=== PATIENT | female | born 1965 | race Caucasian/White ===

== ENCOUNTER 2017-09-19 10:41 | Emergency (ER) | payer MEDICARE, OTHER ==
[~2017-09-19] VITALS: Ht 142.2 cm; Wt 68.2 kg
[~2017-09-19 10:41] MED LIST: AMLO2.5T2 PO; CARV25TA2 PO; CLON1PAT15 TD; FENT1PAT7 TP; HYDR-4069 PO; HYDR-565 PO; NIT10P TD; VALS1TAB81 PO
[2017-09-19 10:45] VITALS: BP 157/74
[2017-09-19] MEDS ORDERED: dexamethasone sod phosphate 10mg/ml inj IM STA (11:10)
[2017-09-19] MEDS ORDERED: cyclobenzaprine 10mg tablet PO ONE (11:10)
[2017-09-19] MEDS ORDERED: METH4TAB81 PO (12:15)
[2017-09-19] MEDS ORDERED: CYCL5TAB PO (12:15)
== END 2017-09-19 12:32 | disposition home or self-care (01) ==
LOC: ER 10:41
DX: M54.5 Low back pain (principal); I10 Essential (primary) hypertension; G43.909 Migraine, unspecified, not intractable, without status migrainosus; Z98.890 Other specified postprocedural states; Z88.5 Allergy status to narcotic agent; Z88.8 Allergy status to other drugs, medicaments and biological substances; Z79.899 Other long term (current) drug therapy
CPT/HCPCS: 99284; J1100

== ENCOUNTER 2018-01-11 06:21 | Day surgery (SDC) | payer MEDICARE, OTHER ==
[2018-01-09 16:41] LABS: BASOPHILS # (AUTO) 0.1 X10'3 (0-0.2); BASOPHILS % (AUTO) 0.8 % (0-1); EOSINOPHILS # (AUTO) 0.3 X10'3 (0-0.9); EOSINOPHILS % (AUTO) 3.5 % (0-6); LYMPHOCYTES # (AUTO) 2.3 X10'3 (1.1-4.8); LYMPHOCYTES % (AUTO) 27.3 % (21-51); MEAN CORPUSCULAR HEMOGLOBIN 30.9 PG (27.0-31.0); MEAN CORPUSCULAR HGB CONC 33.5 % (33.0-36.5); MEAN CORPUSCULAR VOLUME 92.3 FL (78-98); MEAN PLATELET VOLUME 7.9 FL (7.4-10.4); MONOCYTES # (AUTO) 0.6 X10'3 (0-0.9); MONOCYTES % (AUTO) 6.8 % (2-12); NEUTROPHILS # (AUTO) 5.1 X10'3 (1.8-7.7); NEUTROPHILS % (AUTO) 61.6 % (42-75); PRE OP HEMATOCRIT 45.9 % (35.0-45.0); PRE OP HEMOGLOBIN 15.4 g/dL (12.0-16.0); PRE OP PLATELET COUNT 250 X10'3 (140-440); RED BLOOD COUNT 4.97 X10'6 (4.20-5.60); RED CELL DISTRIBUTION WIDTH 14.8 % (11.5-14.5)
[2018-01-09 16:47] LABS: CLARITY,URINE SLIGHTLY CLOUDY (Clear); COLOR,URINE YELLOW (Yellow); GLUCOSE, URINE NEGATIVE (Neg); KETONES,URINE NEGATIVE (Neg); LEUKOCYTE ESTERASE ,URINE NEGATIVE (Neg); NITRITES, URINE NEGATIVE (Neg); OCCULT BLOOD,URINE NEGATIVE (Neg); PROTEIN,URINE TRACE mg/dl (Neg); UA COLLECTION TYPE CLN CATCH MIDSTREAM; UROBILINOGEN,URINE 0.2 E.U/dL (0.2-1.0)
[2018-01-09 16:56] LABS: HYALINE CASTS 0-3 /LPF (NEGATIVE); MUCUS STRANDS MANY /LPF (Neg); SQUAMOUS EPITHELIAL CELL,UR MANY /LPF (FEW)
[2018-01-09 16:57] LABS: BACTERIA,URINE FEW /HPF (Neg); RBC,URINE 0-2 /HPF (0-2); WBC,URINE 0-4 /HPF (0-4)
[2018-01-09 17:09] LABS: ALBUMIN 3.8 G/DL (3.4-5.0); ALBUMIN/GLOBULIN RATIO 1.1 (1.1-1.5); ALKALINE PHOSPHATASE 129 IU/L (46-116); BLOOD UREA NITROGEN 21 MG/DL (7-18); BUN/CREATININE RATIO 15.6 (6.6-38.0); CALCIUM 9.2 MG/DL (8.5-10.1); CHLORIDE 106 MMOL/L (99-107); CREATININE 1.35 MG/DL (0.40-0.90); PRE OP ALT 18 U/L (30-65); PRE OP ANION GAP 7 (8-16); PRE OP AST 17 U/L (10-37); PRE OP BILIRUB, TOTAL 0.4 MG/DL (0.0-1.0); PRE OP GLUCOSE 94 MG/DL (70-104); PRE OP POTASSIUM 4.1 MMOL/L (3.4-5.1); PRE OP SODIUM 142 MMOL/L (135-145); TOTAL CARBON DIOXIDE 29.3 MMOL/L (24-32); TOTAL PROTEIN 7.2 G/DL (6.4-8.2); eGFR 41 ML/MIN
[2018-01-11] VITALS (29 sets, daily range): BP systolic 85–197; BP diastolic 47–119
[~2018-01-11] VITALS: Ht 142.2 cm; Wt 76.2 kg
[~2018-01-11 06:21] MED LIST changes: +Cefazolin 2GM/50ML dext iso,osmotic IVPB IV ONE; +DOCUMENT DATE & TIME OF BETA-BLOCKER PO ONE; -FENT1PAT7 TP; +FURO-150 PO; +LINA290C PO; +LOSA1TAB39 PO; +SPIR50TA5 PO; +SUMA100T PO; -VALS1TAB81 PO; +albuterol 2.5 MG/3 ML nebule NEB ONE; +famotidine 20mg tablet PO ONE; +ringers solution, lacted 1,000 ML IV SCH
[2018-01-11] MEDS ORDERED: LIDOcaine 1% (10mg/ml) 2ml vial ONE (06:42)
[2018-01-11] MEDS ORDERED: hydrALAZINE 25 MG tablet PO ONE (07:10)
[2018-01-11] MEDS ORDERED: losartan 50mg tablet PO ONE (07:10)
[2018-01-11] MEDS ORDERED: nitroGLYCERIN 0.4mg/hour patch TD ONE (07:10)
[2018-01-11] MEDS ORDERED: amitriptyline 10mg tablet PO ONE (07:10)
[2018-01-11] MEDS ORDERED: carVEDilol 12.5mg tablet PO ONE (07:10)
[2018-01-11] MEDS ORDERED: amLODIPine 5mg tablet PO ONE (07:20)
[2018-01-11] MEDS ORDERED: BUPIVAcaine/PF 2.5mg/ml (0.25%) 10ml vial ONE (07:44)
[2018-01-11] MEDS ORDERED: ceFAZolin 1000mg inj ONE (07:44)
[2018-01-11] MEDS ORDERED: bacitracin 15gm ointment TP ONE (07:44)
[2018-01-11] MEDS ORDERED: ondansetron/PF 4mg/2ml inj ONE ×2 (09:02→10:28)
[2018-01-11] MEDS ORDERED: sevoflurane 250ml liquid IH ONE (09:46)
[2018-01-11] MEDS ORDERED: glycopyrrolate 0.2mg/ml inj ONE (09:46)
[2018-01-11] MEDS ORDERED: midazolam 2 mg/2 ml injection ONE (09:47)
[2018-01-11] MEDS ORDERED: fentaNYL/PF 50MCG/1 ML 2ML syringe ONE (09:47)
[2018-01-11] MEDS ORDERED: rocuronium 10mg/ml inj IV ONE (09:48)
[2018-01-11] MEDS ORDERED: propofol inj 20 ML IV ONE (09:48)
[2018-01-11] MEDS ORDERED: dexamethasone sod phosphate 4mg/ml inj. ONE (10:28)
[2018-01-11] MEDS ORDERED: ringers solution, lacted 1,000 ML IV SCH (10:38)
[2018-01-11] MEDS ORDERED: proCHLORperazine 10 MG/2 ml inj IV PRN (10:40)
[2018-01-11] MEDS ORDERED: morphine 4 MG/ML inj SYRINge IV PRN (10:40)
[2018-01-11] MEDS ORDERED: ondansetron/PF 4mg/2ml inj IV PRN ×2 (10:40→15:10)
[2018-01-11] MEDS ORDERED: meperidine/PF 25mg/ml syringe IV PRN ×2 (10:40)
[2018-01-11] MEDS ORDERED: neostigmine methylsulfate 1 MG/ML 10ml vial ONE (10:45)
[2018-01-11] MEDS: meperidine/PF 25mg/ml syringe IV PRN ×3 (11:30→11:59)
[2018-01-11] MEDS ORDERED: HYDROcodone/acetaminophen 10/325mg tab PO ONE (11:55)
[2018-01-11] MEDS ORDERED: acetaminophen 1,000mg/100ml IV 100 ML IV ONE (12:55)
[2018-01-11] MEDS: morphine 4 MG/ML inj SYRINge IV PRN ×2 (14:36→15:28)
[2018-01-11] MEDS ORDERED: HYDROmorphone/NS 1 mg/ml CADD 50 ML IV SCH (15:10)
[2018-01-11] MEDS ORDERED: acetaminophen 325mg tablet PO PRN (15:10)
[2018-01-11] MEDS ORDERED: CADD PCA waste documentation MC SCH (15:35)
[2018-01-11] MEDS: HYDROmorphone/NS 1 mg/ml CADD 50 ML IV SCH ×5 (15:56→23:00)
[2018-01-11] MEDS ORDERED: SUMAtriptan 25 MG tablet PO PRN (16:10)
[2018-01-11] MEDS ORDERED: HYDROcodone/acetaminophen 10/325mg tab PO PRN (17:00)
[2018-01-11] MEDS: carVEDilol 12.5mg tablet PO SCH (20:00)
[2018-01-11] MEDS: nicotine 14mg patch - 24hr TD SCH (20:08)
[2018-01-12] VITALS: BP 133/79
[2018-01-12] MEDS: HYDROmorphone/NS 1 mg/ml CADD 50 ML IV SCH ×8 (01:00→15:00)
[2018-01-12 07:11] VITALS: BP 149/85
[2018-01-12] MEDS: carVEDilol 12.5mg tablet PO SCH (07:21)
[2018-01-12] MEDS: nicotine 14mg patch - 24hr TD SCH (07:22)
[2018-01-12] MEDS ORDERED: HYDROchlorothiazide 25mg tablet PO SCH (08:00)
[2018-01-12] MEDS ORDERED: hydrALAZINE 25 MG tablet PO SCH (08:00)
[2018-01-12] MEDS ORDERED: furosemide 20MG tablet PO SCH (08:00)
[2018-01-12] MEDS ORDERED: nitroGLYCERIN 0.4mg/hour patch TD SCH (08:00)
[2018-01-12] MEDS ORDERED: spironolactone 50 MG tablet PO SCH (08:00)
[2018-01-12] MEDS ORDERED: amLODIPine 5mg tablet PO SCH (08:00)
[2018-01-12] MEDS ORDERED: losartan 50mg tablet PO SCH (08:00)
[2018-01-12 11:20] VITALS: BP 122/69
== END 2018-01-12 15:41 | disposition home or self-care (01) ==
LOC: PAS 06:21 → SUR 3N 16:32 → PAS 01-12 15:41
PROVIDERS: ATTEND Surgery
DX: K43.0 Incisional hernia with obstruction, without gangrene (principal); G43.909 Migraine, unspecified, not intractable, without status migrainosus; G89.29 Other chronic pain; M19.90 Unspecified osteoarthritis, unspecified site; I44.4 Left anterior fascicular block; I13.0 Hypertensive heart and chronic kidney disease with heart failure and stage 1 through stage 4 chronic kidney disease, or unspecified chronic kidney disease; N18.3 Chronic kidney disease, stage 3 (moderate); I50.9 Heart failure, unspecified; E66.9 Obesity, unspecified; F17.210 Nicotine dependence, cigarettes, uncomplicated; M81.0 Age-related osteoporosis without current pathological fracture; I25.10 Atherosclerotic heart disease of native coronary artery without angina pectoris; J98.59 Other diseases of mediastinum, not elsewhere classified; F41.8 Other specified anxiety disorders; F32.9 Major depressive disorder, single episode, unspecified; Z87.442 Personal history of urinary calculi; Z86.14 Personal history of Methicillin resistant Staphylococcus aureus infection; Z68.37 Body mass index [BMI] 37.0-37.9, adult; Z87.440 Personal history of urinary (tract) infections; Z95.828 Presence of other vascular implants and grafts; Z79.1 Long term (current) use of non-steroidal anti-inflammatories (NSAID); Z88.5 Allergy status to narcotic agent; Z88.4 Allergy status to anesthetic agent; Z79.891 Long term (current) use of opiate analgesic; Z79.899 Other long term (current) drug therapy; Z98.890 Other specified postprocedural states; Z88.8 Allergy status to other drugs, medicaments and biological substances; Z82.49 Family history of ischemic heart disease and other diseases of the circulatory system; Z83.6 Family history of other diseases of the respiratory system
CPT/HCPCS: 36415; 49566; 71046; 80053; 81001; 85025; 85610; 85730; 87070; 93005; 94640; 94760; A4353; A6449; J0131; J0690; J1100; J1170; J2175; J2250; J2270; J2405; J2704; J2710; J3010; J3490; J7120; A7000

== ENCOUNTER 2018-03-06 12:20 | Outpatient (CLI) | payer MEDICARE, OTHER ==
[~2018-03-06 12:20] MED LIST changes: -Cefazolin 2GM/50ML dext iso,osmotic IVPB IV ONE; -DOCUMENT DATE & TIME OF BETA-BLOCKER PO ONE; +HYDR-4353 PO; -HYDR-565 PO; -albuterol 2.5 MG/3 ML nebule NEB ONE; -famotidine 20mg tablet PO ONE; -ringers solution, lacted 1,000 ML IV SCH
== END 2018-03-06 23:59 | disposition home or self-care (01) ==
LOC: CARD DIAG 12:20
PROVIDERS: ATTEND Internal Medicine Cardiovascular Disease
DX: I08.0 Rheumatic disorders of both mitral and aortic valves (principal); I10 Essential (primary) hypertension; F17.200 Nicotine dependence, unspecified, uncomplicated
CPT/HCPCS: 93306

== ENCOUNTER 2018-11-23 08:15 | Outpatient (CLI) | payer MEDICARE, OTHER ==
[~2018-11-23] VITALS: Ht 142.2 cm; Wt 78.0 kg
[2018-11-23] VITALS (8 sets, daily range): BP systolic 142–166; BP diastolic 76–95
[2018-11-23] MEDS ORDERED: aminophylline inj. 10 ML IV ONE (10:24)
[2018-11-23] MEDS ORDERED: regadenoson 0.4mg/5ml syringe IV ONE (10:35)
[2018-11-23] MEDS ORDERED: atropine 0.1mg/ml 10ml syringe IV PRN (10:40)
[2018-11-23] MEDS ORDERED: normal saline 500ml IV soln 500 ML IV ONE (10:40)
[2018-11-23] MEDS ORDERED: metoprolol tartrate 1mg/ml inj IV PRN (10:40)
[2018-11-23] MEDS ORDERED: nitroGLYCERIN 0.4mg SUBLingual tab SL PRN (10:40)
[2018-11-23] MEDS ORDERED: aminophylline 250mg/10ml inj. IV PRN (10:40)
== END 2018-11-23 23:59 | disposition home or self-care (01) ==
LOC: RAD 08:15
PROVIDERS: ATTEND Internal Medicine Cardiovascular Disease
DX: Z01.810 Encounter for preprocedural cardiovascular examination (principal); I25.10 Atherosclerotic heart disease of native coronary artery without angina pectoris; I10 Essential (primary) hypertension; R06.02 Shortness of breath; F17.200 Nicotine dependence, unspecified, uncomplicated
CPT/HCPCS: 78452; 93017; A9500; J0280; J2785; J7040

== ENCOUNTER 2019-03-07 12:40 | Outpatient (CLI) | payer MEDICARE, OTHER | END 2019-03-07 23:59 | disposition home or self-care (01) | LOC: CARD DIAG 12:40 | PROVIDERS: ATTEND Internal Medicine Cardiovascular Disease | DX: I08.0 Rheumatic disorders of both mitral and aortic valves (principal); I11.0 Hypertensive heart disease with heart failure; I50.9 Heart failure, unspecified; F17.200 Nicotine dependence, unspecified, uncomplicated; Z87.19 Personal history of other diseases of the digestive system; Z87.39 Personal history of other diseases of the musculoskeletal system and connective tissue; Z87.448 Personal history of other diseases of urinary system; Z82.49 Family history of ischemic heart disease and other diseases of the circulatory system; Z83.6 Family history of other diseases of the respiratory system; Z98.890 Other specified postprocedural states | CPT/HCPCS: 93306 ==

== ENCOUNTER 2019-03-21 11:03 | Emergency (ER) | payer MEDICARE, OTHER ==
[~2019-03-21] VITALS: Ht 142.2 cm; Wt 73.0 kg
[2019-03-21] MEDS ORDERED: acetaminophen 325mg tablet PO ONE (11:20)
[2019-03-21 11:39] LABS: BASOPHILS % (AUTO) 0.8 % (0-1); EOSINOPHILS # (AUTO) 0.1 X10'3 (0-0.9); EOSINOPHILS % (AUTO) 1.8 % (0-6); HEMATOCRIT 41.6 % (35.0-45.0); LYMPHOCYTES # (AUTO) 0.1 X10'3 (1.1-4.8); LYMPHOCYTES % (AUTO) 3.8 % (21-51); MEAN CORPUSCULAR HEMOGLOBIN 32.1 PG (27.0-31.0); MEAN CORPUSCULAR HGB CONC 33.6 g/dL (33.0-36.5); MEAN CORPUSCULAR VOLUME 95.5 FL (78-98); MEAN PLATELET VOLUME 7.8 FL (7.4-10.4); MONOCYTES # (AUTO) 0.1 X10'3 (0-0.9); MONOCYTES % (AUTO) 1.4 % (2-12); NEUTROPHILS # (AUTO) 3.6 X10'3 (1.8-7.7); NEUTROPHILS % (AUTO) 92.2 % (42-75); PLATELET COUNT 184 X10'3 (140-440); RED BLOOD COUNT 4.36 X10'6 (4.20-5.60); RED CELL DISTRIBUTION WIDTH 15.2 % (11.5-14.5); WHITE BLOOD COUNT 3.9 X10'3 (4.5-11.0)
[2019-03-21 11:51] LABS: PARTIAL THROMBOPLASTIN TIME 26 SECONDS (22-32)
[2019-03-21 11:53] LABS: ANION GAP 11 (8-16); BLOOD UREA NITROGEN 15 MG/DL (7-18); BUN/CREATININE RATIO 11.5 (6.6-38.0); CHLORIDE 100 MMOL/L (99-107); GLUCOSE 95 MG/DL (70-104); POTASSIUM 3.5 MMOL/L (3.5-5.1); SODIUM 136 MMOL/L (135-145)
[2019-03-21 11:54] LABS: ALANINE AMINOTRANSFERASE 38 U/L (12-78); ALBUMIN 3.5 G/DL (3.4-5.0); ALKALINE PHOSPHATASE 132 IU/L (46-116); ASPARTATE AMINO TRANSFERASE 27 U/L (10-37); BILIRUBIN,TOTAL 0.6 MG/DL (0.1-1.0); CALCIUM 9.2 MG/DL (8.5-10.1); TOTAL PROTEIN 7.1 G/DL (6.4-8.2); eGFR 43 ML/MIN
[2019-03-21] MEDS ORDERED: morphine 4 MG/ML inj SYRINge IV ONE (12:00)
[2019-03-21] MEDS ORDERED: diphenhydrAMINE 50 mg/ml inj IV ONE (12:00)
[2019-03-21] MEDS ORDERED: ondansetron/PF 4mg/2ml inj IV ONE (12:00)
[2019-03-21 12:01] LABS: C-REACTIVE PROTEIN 11.57 MG/DL (0.0-0.5)
--- NOTE | 2019-03-21 12:09 | NUR ---
MEDICAL RECORDS RELEASE FAXED TO [facility]
[2019-03-21] MEDS ORDERED: CefTRIAXone 2gm/D5W 50ml 50 ML IV ONE (12:20)
[2019-03-21] MEDS ORDERED: vancomycin/NS 1 GM ADD-VANTAGE 250 ML IV ONE (12:20)
[2019-03-21] MEDS ORDERED: normal saline 1000ML IV soln IVB ONE ×2 (12:45→13:25)
[2019-03-21] MEDS ORDERED: levoFLOXACIN-Levaquin 500mg/D5 100 ML IV ONE (13:40)
--- NOTE | 2019-03-21 14:19 | NUR ---
Pt returned from MRI, ABX infusion restarted. Pt resting on gurney with eyes closed.
[2019-03-21 15:33] LABS: CLARITY,URINE CLOUDY (Clear); COLOR,URINE YELLOW (Yellow); GLUCOSE, URINE NEGATIVE (Neg); KETONES,URINE NEGATIVE (Neg); LEUKOCYTE ESTERASE ,URINE TRACE (Neg); NITRITES, URINE POSITIVE (Neg); OCCULT BLOOD,URINE NEGATIVE (Neg); PH,URINE 5.5 (4.8-8.0); PROTEIN,URINE TRACE mg/dl (Neg); UROBILINOGEN,URINE 0.2 E.U/dL (0.2-1.0)
--- NOTE | 2019-03-21 15:37 | NUR ---
DR VARGAS CALLED BACK
[2019-03-21 15:47] LABS: UA COLLECTION TYPE CLN CATCH MIDSTREAM
[2019-03-21 15:51] LABS: SQUAMOUS EPITHELIAL CELL,UR MODERATE /LPF (FEW)
[2019-03-21 15:56] LABS: CREATINE KINASE 167 U/L (26-192)
[2019-03-21 15:59] LABS: BACTERIA,URINE 3+ /HPF (Neg)
[2019-03-21 16:01] LABS: RBC,URINE NONE SEEN /HPF (0-2)
[2019-03-21] MEDS ORDERED: LEVO750T21 PO (16:26)
[2019-03-21 16:35] VITALS: BP 104/53
--- NOTE | 2019-03-21 17:41 | NUR ---
CALLED [facility] [phone], CALLED IN PRESCRIPTION FOR LEVAQUIN 750 MG 1 TAB DAILY X 7 TABS, CALLED [phone] AND [phone] LEFT MESSAGE NOTIFYING PT AND PT FAMILY THAT PRESCRIPTION HAS BEEN CALLED IN AND TO CALL BACK [facility] ED IF ANY QUESTIONS.
[2019-03-21] MEDS ORDERED: gadobutrol 10mmol/10ml inj. IV ONE ×2 (18:27→18:28)
== END 2019-03-21 17:17 | disposition left against medical advice (07) ==
LOC: ER 11:03
DX: A41.9 Sepsis, unspecified organism (principal); N39.0 Urinary tract infection, site not specified; G43.909 Migraine, unspecified, not intractable, without status migrainosus; I12.9 Hypertensive chronic kidney disease with stage 1 through stage 4 chronic kidney disease, or unspecified chronic kidney disease; N18.9 Chronic kidney disease, unspecified; G89.29 Other chronic pain; M19.90 Unspecified osteoarthritis, unspecified site; M81.0 Age-related osteoporosis without current pathological fracture; Z98.890 Other specified postprocedural states; Z88.1 Allergy status to other antibiotic agents; Z79.2 Long term (current) use of antibiotics; Z79.899 Other long term (current) drug therapy
CPT/HCPCS: 36415; 71045; 72158; 80053; 81001; 82550; 83605; 84145; 85025; 85610; 85651; 85730; 86140; 87040; 87077; 87088; 87186; 87502; 87503; 96365; 96366; 96368; 96375; 99291; 99406; A9585; J0696; J1200; J1956; J2270; J2405; J3370; 99284

== ENCOUNTER 2019-03-25 15:37 | Emergency (ER) | payer MEDICARE, OTHER ==
[~2019-03-25] VITALS: Ht 142.2 cm; Wt 90.0 kg
[~2019-03-25 15:37] MED LIST changes: +LEVO750T21 PO
[2019-03-25 17:43] VITALS: BP 102/71
[2019-03-26] MEDS ORDERED: DAPTOmycin inj. 500 MG in normal saline 100ml IV soln 100 ML IV SCH (16:55)
== END 2019-03-25 18:55 | disposition home or self-care (01) ==
LOC: ER 15:38
DX: T82.524A Displacement of infusion catheter, initial encounter (principal); M54.2 Cervicalgia; H92.03 Otalgia, bilateral; M46.26 Osteomyelitis of vertebra, lumbar region; G43.909 Migraine, unspecified, not intractable, without status migrainosus; I10 Essential (primary) hypertension; G89.29 Other chronic pain; M19.90 Unspecified osteoarthritis, unspecified site; M81.0 Age-related osteoporosis without current pathological fracture; Z98.890 Other specified postprocedural states; Z88.1 Allergy status to other antibiotic agents; Z79.899 Other long term (current) drug therapy; Z79.2 Long term (current) use of antibiotics; Y83.8 Other surgical procedures as the cause of abnormal reaction of the patient, or of later complication, without mention of misadventure at the time of the procedure; Y92.89 Other specified places as the place of occurrence of the external cause
CPT/HCPCS: 96365; 99283; J0878

== ENCOUNTER 2019-03-26 10:50 | Emergency (ER) | payer MEDICARE, OTHER ==
[~2019-03-26] VITALS: Ht 142.2 cm; Wt 82.0 kg
[2019-03-26 11:13] VITALS: BP 135/92
--- NOTE | 2019-03-26 13:40 | NUR ---
picc line rnn took pt to IR
== END 2019-03-26 15:12 | disposition home or self-care (01) ==
LOC: ER 10:51
DX: Z45.2 Encounter for adjustment and management of vascular access device (principal); M46.20 Osteomyelitis of vertebra, site unspecified; G43.909 Migraine, unspecified, not intractable, without status migrainosus; I10 Essential (primary) hypertension; G89.29 Other chronic pain; M19.90 Unspecified osteoarthritis, unspecified site; F17.210 Nicotine dependence, cigarettes, uncomplicated; Z98.890 Other specified postprocedural states; Z88.1 Allergy status to other antibiotic agents; Z79.899 Other long term (current) drug therapy
CPT/HCPCS: 36569; 76937; 99285

== ENCOUNTER 2019-03-27 16:26 | Emergency (ER) | payer MEDICARE, OTHER ==
[~2019-03-27] VITALS: Ht 142.2 cm; Wt 77.3 kg
[~2019-03-27 16:26] MED LIST changes: -NIT10P TD; +NITR1PAT68 TD
[2019-03-27 16:40] VITALS: BP 135/115
--- NOTE | 2019-03-27 17:33 | NUR ---
ED page about Pt's arm around PICC insertion was painful. Pt seen by PICC nurse team. Site assessed. Pt's PICC Line dressing changed, no complaints of pain, no arm swelling, no discoloration of skin. Asked Pt if she wanted an X-Ray for confirmation of placement, which patient denied. Before leaving the Pt's room, Pt was asked to move arm in manner in which caused pain earlier, which she did. She then stated "I don't feel any more pain, everything feels normal." Pt's surrounding tissue was palpated and pushed down with pressure, to which the patient stated that she felt no pain.
== END 2019-03-27 17:39 | disposition home or self-care (01) ==
LOC: ER 16:26
DX: T82.838A Hemorrhage due to vascular prosthetic devices, implants and grafts, initial encounter (principal); G43.909 Migraine, unspecified, not intractable, without status migrainosus; I10 Essential (primary) hypertension; G89.29 Other chronic pain; M19.90 Unspecified osteoarthritis, unspecified site; M81.0 Age-related osteoporosis without current pathological fracture; Z88.1 Allergy status to other antibiotic agents; Z79.899 Other long term (current) drug therapy; Y83.8 Other surgical procedures as the cause of abnormal reaction of the patient, or of later complication, without mention of misadventure at the time of the procedure; Y92.89 Other specified places as the place of occurrence of the external cause
CPT/HCPCS: 99285